=== PATIENT | female | born 1970 | race Caucasian/White ===

== ENCOUNTER 2016-05-21 11:52 | Emergency (ER) ==
--- NOTE | 2016-05-21 12:49 | PROVIDER DOCUMENTATION ---
HPI-Abdominal Pain/GI Problem - General Chief Complaint: Flank Pain Stated Complaint: KIDNEY STONE Time Seen by Provider: 05/21/16 12:16 Allergies/Adverse Reactions: Patient Allergies Allergy/AdvReac Type Severity Reaction Status Date / Time amitriptyline Allergy Mild Unknown Verified 02/13/13 10:02 clarithromycin [From Biaxin] Allergy Mild Unknown Verified 02/13/13 10:02 gabapentin [From Neurontin] Allergy Mild Unknown Verified 02/13/13 10:02 ketorolac tromethamine * Allergy Mild SWELLING Verified 02/13/13 10:02 [From Toradol] topiramate [From Topamax] Allergy Mild ABDOMINAL Verified 02/13/13 10:02 PAIN tramadol Allergy Mild Unknown Verified 02/13/13 10:02 Home Medications: Home Medication List Medication Instructions Recorded Confirmed Last Taken Type LISINOpril [Prinivil] 40 mg PO DAILY 02/13/13 05/21/16 05/21/16 04:00 History Adalimumab [Humira] 0.2 ml IM DIRECTED 05/21/16 05/21/16 Unknown History Carvedilol [Coreg] 1 tab PO BID 05/21/16 05/21/16 05/21/16 04:00 History Clonazepam [Klonopin] 0.5 tab PO BID PRN 05/21/16 05/21/16 05/21/16 04:00 History Docusate Sodium [Colace] 100 mg PO BID #60 capsule 05/21/16 Unknown Rx Estradiol [Minivelle] 1 applic ID [id number] 05/21/16 05/21/16 Unknown History Fluoxetine HCl [Prozac] 1 tab PO DAILY 05/21/16 05/21/16 05/21/16 04:00 History Naproxen [Naprosyn] 500 mg PO BID PRN #20 tablet 05/21/16 Unknown Rx Polyethylene Glycol 3350 [Miralax] 17 gm PO DAILY #10 powd.pack 05/21/16 Unknown Rx - History of Present Illness-ABD Nature of Presenting Problems: Pt with h/o kidney stone with last about 2 yrs ago with acute onset of right flank pain radiating around to the front RUQ this am. Feels like kidney stone. Nausea but no vomiting. Mild dysuria but no hematuria noted. No fevers nor chills. Noted in the PDMP for [place] that she has fill 10 controlled substances by 5 different MD's over the last 6 weeks. Four of the scripts were for hydrocodone cough medications. Abdominal Pain Onset Location: reports: flank Pain Radiation: reports: RUQ Quality of Pain: reports: aching, sharp Severity in ED: reports: moderate Onset/Duration: reports: this morning Timing: reports: still present Associated Symptoms: reports: genitourinary problems (mild dysuria), nausea. denies: chest pain, constipation, cough, diaphoresis, diarrhea, fever/chills, muscle aches, vomiting Similar Symptoms Previously?: Yes Review of Systems - Adult - REVIEW OF SYSTEMS - ADULT Constitutional: denies: chills, fever Eyes: reports: no symptoms reported Ears, Nose, Mouth & Throat: reports: no symptoms reported Cardiovascular: reports: no symptoms reported Respiratory: denies: cough, shortness of breath Gastrointestinal: reports: abdominal pain, nausea. denies: diarrhea, vomiting Genitourinary: reports: dysuria, flank pain. denies: frequency, hematuria Musculoskeletal: reports: back pain. denies: bone pain Integumentary: reports: no symptoms reported Neurological: reports: no symptoms reported Psychiatric: reports: no symptoms reported Endocrine: reports: no symptoms reported Hematologic/Lymphatic: reports: no symptoms reported Allergic/Immunologic: reports: no symptoms reported All Other Systems: Reviewed and Negative Past History - Adult - PAST MEDICAL HISTORY-ADULT Review of Records: reports: Old Records Reviewed (noted seen by 5 diff MD's in the last 6 weeks for 10 diff controlled substance Rx's), Nursing Assessment Review, Medications Reviewed Cardiovascular: reports: HTN, hyperlipidemia Genitourinary: reports: kidney stones, other (pylonephritis) Neurological: reports: headaches/migraines - PRIOR SURGERIES/PROCEDURES Surgical/Procedure History: reports: appendectomy, cholecystectomy, hysterectomy , other (bladder sling/mesh) - SOCIAL HISTORY Smoking: non-smoker Living Situation: [place] Physical Exam-General - PHYSICAL EXAM-ADULT Initial Vital Signs Reviewed: Yes - CONSTITUTIONAL General Appearance: appears well, alert, no apparent distress - EYES Eyes: PERRL/EOMI, pink conjunctivae - HEAD, EARS, NOSE, MOUTH & THROAT HENMT: normocephalic/atraumatic, moist mucous membranes, normal ENT inspection - NECK Neck: non-tender, full range of motion, supple - RESPIRATORY Respiratory: chest non-tender, lungs clear, normal breath sounds - CARDIOVASCULAR Cardiovascular: normal peripheral pulses, regular rate, rhythm, no edema - GASTROINTESTINAL (ABDOMEN) Abdominal Exam: normal bowel sounds, non tender, soft, no organomegaly. negative: distended, guarding, Pan's sign - LYMPHATIC Lymphatic: no adenopathy, enlargement - MUSCULOSKELETAL Back Exam: CVA tenderness (right). negative: muscle spasm Extremity: normal range of motion, non-tender - SKIN Integumentary: normal color, normal turgor, warm/dry. negative: diaphoresis - NEUROLOGIC Neurologic: grossly normal - PSYCHIATRIC Psych/Mental Status: normal mood/affect Progress - PLAN OF CARE/RESULTS Progress/Plan/Lab Results: Vital Signs Temp Pulse Resp BP Pulse Ox 05/21/16 11:55 97.6 F 69 20 131/91 100 amitriptyline Allergy (Mild, Verified 02/13/13 10:02) Unknown seizures clarithromycin [From Biaxin] Allergy (Mild, Verified 02/13/13 10:02) Unknown palpatations gabapentin [From Neurontin] Allergy (Mild, Verified 02/13/13 10:02) Unknown halluciantions ketorolac tromethamine * [From Toradol] Allergy (Mild, Verified 02/13/13 10:02) SWELLING topiramate [From Topamax] Allergy (Mild, Verified 02/13/13 10:02) ABDOMINAL PAIN tramadol Allergy (Mild, Verified 02/13/13 10:02) Unknown seizures LISINOpril [Prinivil] 40 mg PO DAILY 02/13/13 Adalimumab [Humira] 0.2 ml IM DIRECTED 05/21/16 Carvedilol [Coreg] 1 tab PO BID 05/21/16 Clonazepam [Klonopin] 0.5 tab PO BID PRN 05/21/16 Estradiol [Minivelle] 1 applic ID [id number] 05/21/16 Fluoxetine HCl [Prozac] 1 tab PO DAILY 05/21/16 Laboratory 05/21/16 12:15 Urine Source CLEAN CATCH Urine Color YELLOW Urine Turbidity CLEAR Urine pH 6.5 Ur Specific [place] 1.021 Urine Protein NEGATIVE Ur Glucose (Stick) NEGATIVE Ur Ketones (Stick) NEGATIVE Urine Blood NEGATIVE Urine Nitrite NEGATIVE Urine Bilirubin NEGATIVE Urobilinogen Dipstick NORMAL Urine Leukocytes NEGATIVE Urine WBC (Auto) <10 Urine RBC (Auto) <10 U Epithel Cells (Auto) <10 Urine Bacteria (Auto) 1+ - CT/MRI 1 CT Study: Renal Stone Impression: Abnormal (constipation, no stones nor hydronephrosis), Discussed w/ Radiology Departure - Departure Time of Disposition Order: 13:58 DIAGNOSIS: Constipation due to opioid therapy, Abdominal pain, right upper quadrant DIAGNOSIS: (Ruled Out): Kidney stone on right side Disposition: HOME 01 Certified Medical Emergency: Emergent Condition: Good Additional Instructions: Increase fluids. Avoid constipating foods and narcotics. See your family MD as needed. ED Follow Up Instructions: You have been treated by a care provider in the Emergency Department. These instructions are being provided to you so you can have an understanding of how to care for yourself upon discharge. Upon discharge from the Emergency Department, you are responsible for making arrangements for follow-up care by a physician of your choice. Take all prescribed medications as directed. Return to the Emergency Department immediately for any new or worsening symptoms. You may call the Physician Referral phone number at [phone] to obtain a list of Physicians who are taking new patients. Prescriptions: Docusate Sodium [Colace] 100 mg PO BID #60 capsule Polyethylene Glycol 3350 [Miralax] 17 gm PO DAILY #10 powd.pack Naproxen [Naprosyn] 500 mg PO BID PRN #20 tablet PRN Reason: Pain Referrals: None,PCP [Primary Care Provider] - Instructions: Constipation, Adult
[2016-05-21 12:54] LABS: URINE MICRO REVIEW NEEDED? NO; URINE SOURCE CLEAN CATCH
[2016-05-21 12:59] LABS: BILIRUBIN URINE NEGATIVE (NEGATIVE); BLOOD URINE NEGATIVE (NEGATIVE); COLOR YELLOW; GLUCOSE URINE NEGATIVE (NEGATIVE); LEUKOCYTES URINE NEGATIVE (NEGATIVE); NITRITE URINE NEGATIVE (NEGATIVE); PH URINE 6.5; PROTEIN URINE NEGATIVE (NEGATIVE); SP GRAVITY URINE 1.021; TURBIDITY URINE CLEAR (CLEAR); UR EPITHELIAL CELLS <10 /HPF (<10); URINE BACTERIA 1+ /HPF; URINE RBC <10 /HPF (<10); URINE WBC <10 /HPF (<10); UROBILINOGEN URINE NORMAL (NORMAL)
[2016-05-21] MEDS ORDERED: RELISTOR SUBQ ONE (13:56)
[2016-05-21 14:29] VITALS: BP 126/74
--- NOTE | 2016-05-21 14:53 | Diag Imaging Result Document ---
PROCEDURE NAME: RENAL STONE SEARCH - 05/21/2016 CT UROGRAM WITHOUT CONTRAST: FINDINGS: There is atelectasis in the lateral costophrenic sulcus of the left lower lobe which was not present on 02/13/2013. There is a small hiatal hernia. There is a 2 mm calculus in the lower pole of the left collecting system and what appears to be a 3 mm calcification in the mid portion of the right collecting system. There is no evidence of hydronephrosis. No evidence of ureterolithiasis is present. There has been appendectomy and hysterectomy. There is no evidence of free fluid. There is diverticulosis in the sigmoid and descending colon without evidence of active diverticulitis. There is no evidence of small bowel dilatation. There is a fat containing umbilical hernia. IMPRESSION: 1. Nephrolithiasis without evidence of obstruction. 2. Diverticulosis coli.
== END 2016-05-21 14:29 | disposition home or self-care (01) ==
LOC: ED 11:52
DX: K59.03 Drug induced constipation (principal); T40.2X5A Adverse effect of other opioids, initial encounter; R10.11 Right upper quadrant pain; K57.90 Diverticulosis of intestine, part unspecified, without perforation or abscess without bleeding; R10.9 Unspecified abdominal pain; R11.0 Nausea; R30.0 Dysuria; M54.9 Dorsalgia, unspecified; I10 Essential (primary) hypertension; E78.5 Hyperlipidemia, unspecified; Z79.899 Other long term (current) drug therapy; Z87.442 Personal history of urinary calculi
CPT/HCPCS: 74176; 81001